=== PATIENT | female | born 1970 | race Caucasian/White ===

== ENCOUNTER → 2016-12-16 | Outpatient (CLI) | payer OTHER ==
--- NOTE | 2016-12-17 08:53 | DX ---
DEXA Bone Densitometry Technique: DEXA scan was performed on [employer] Discovery W Bone Densitometer Indication: Screening examination Comparator Study: None Results: Lumbar Spine BMD: 0.855 T-score: -1.7 Total Hip (Right) BMD: 0.682 T-score: -2.1 Femoral Neck (Right) BMD: 0.565 T-score: -2.6 Total Hip (Left) BMD: 0.741 T-score: -1.6 Femoral Neck (Left) BMD: 0.586 T-score: -2.4 CONCLUSION: Low bone mineral density. This patient's bone mineral density is unexpectedly low compar ed with healthy age, sex, and race matched controls. Consider evaluation for secondary causes of bone loss ADDITIONAL COMMENTS: By FRA X calculation, the estimated 10 year probability of any major osteoporotic fracture is 9.6%. T he estimated 10 year probability of hip fracture is 2.5%. Consider further treatment to prevent fractures and increased bone mineral density Consider repeating the study in 2 years. Mild degenerative changes are present in the lower lumbar spine. This will increase the measured bone density lumbar spine. NOTE: The risk of osteoporotic fractures increases approximately twofold for each 1.0 SD decrease in T-score. The T-score represents the standard deviations from a young normal, same sex, reference po pulation. Low bone density is not the only risk factor for fracture. Clinical factors to consider include fall risk, previous osteoporotic fractures, family history of fractures, smoking, and low body weight. Patients who have an unexpectedly low BMD may need to be evaluated for secondary causes of low bone m ineral density. In comparing the present study to a prior study, lack of a significant increase or decrease in BMD ma y signify efficacy of the patient's present treatment. Bone mineral density measurements performed with densitometers produced by different manufacturers ar e not comparable. For the most reproducible BMD measurement, subsequent exams should be performed on the same densitometer.
== END ==
LOC: BMCIMAGING 11:09
PROVIDERS: ATTEND Internal Medicine
DX: Z13.820 Encounter for screening for osteoporosis (principal); M85.80 Other specified disorders of bone density and structure, unspecified site

== ENCOUNTER → 2017-01-19 | Outpatient (CLI) | payer OTHER | LOC: BMCIMAGING 09:15 | PROVIDERS: ATTEND Internal Medicine | DX: M53.3 Sacrococcygeal disorders, not elsewhere classified (principal); M43.16 Spondylolisthesis, lumbar region; M51.34 Other intervertebral disc degeneration, thoracic region; M51.36 Other intervertebral disc degeneration, lumbar region; M51.37 Other intervertebral disc degeneration, lumbosacral region ==

== ENCOUNTER → 2018-11-29 | Outpatient (CLI) | payer OTHER | LOC: BMCIMAGING 12:28 | PROVIDERS: ATTEND Internal Medicine | DX: R05 Cough (principal) ==

== ENCOUNTER → 2018-12-02 | Outpatient (CLI) | payer OTHER | LOC: BMCIMAGING 12:16 | PROVIDERS: ATTEND Internal Medicine | DX: J34.9 Unspecified disorder of nose and nasal sinuses (principal) ==

== ENCOUNTER 2019-02-27 19:12 | Emergency (ER) | payer MEDICAID, OTHER ==
[2019-02-27] MEDS ORDERED: NS 1,000 ML IV ONE (19:29)
[2019-02-27] MEDS ORDERED: LORazepam 1 MG TAB PO PRN (19:29)
[2019-02-27] MEDS ORDERED: LORazepam 2 MG/ML INJ IVP PRN (19:29)
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
[2019-02-27 19:53] LABS: PLATELET COUNT 211 10^3/uL (150-400)
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
--- NOTE | 2019-02-28 | ASMTTCLDSP ---
TLC Discharge Disposition Disposition: Answers: Discharge Disposition Notes: Notes: Alcohol Use Disorder, severe 303.90 (F10.20) Discharge Concerns/Recommendations: Notes: In consultation with [facility] ED physician, Gerda Troy MD. He concurred that the patient does not appear to meet 27-65 criteria requiring psychiatric hospitalization as patient does not appear to be an imminent risk of harm to self/others/gravely disabled due to a mental illness condition. Was patient given the Answers: Not applicable Inpatient Behavioral Health Prohibited Belongings List while in the ED? Date Signed: 02/28/2019 12:00 AM Electronically Signed By:Bre Fulton
--- NOTE | 2019-02-28 00:03 | ASMTLCPROG ---
Notes Note: Notes: Addendum to TLC Evaluation; this typewriters functional tester neglected the diagnosis which is listed below. Alcohol Use Disorder, severe 303.90 (F10.20) Date Signed: 02/28/2019 12:02 AM Electronically Signed By:Bre Fulton
[2019-02-28 00:21] VITALS: BP 135/92
== END 2019-02-28 00:21 | disposition home or self-care (01) ==
DX: F10.129 Alcohol abuse with intoxication, unspecified (principal); E86.9 Volume depletion, unspecified; F31.9 Bipolar disorder, unspecified; Z79.899 Other long term (current) drug therapy
CPT/HCPCS: 80305; G0480